=== PATIENT | male | born 1970 | race Caucasian/White ===

== ENCOUNTER 2022-12-22 21:53 | Emergency (ER) | payer SELFPAY ==
[~2022-12-22] VITALS: Ht 160 cm; Wt 59.0 kg
[2022-12-22] MEDS ORDERED: HALOPERIDOL LACTATE 5 MG/ML VIAL ONE (22:01)
[2022-12-22] MEDS ORDERED: DIPHENHYDRAMINE INJ 50 MG/ML VIAL ONE (22:04)
[2022-12-22] MEDS ORDERED: LORazepam 2 MG/ML VIAL ONE (22:05)
[2022-12-22 22:06] VITALS: BP_SYST 148
[2022-12-22] MEDS ORDERED: LORazepam 2 MG/ML VIAL IVP ONE (22:15)
[2022-12-22] MEDS ORDERED: HALOPERIDOL LACTATE 5 MG/ML VIAL IVP ONE (22:15)
[2022-12-22] MEDS ORDERED: NACL 0.9% 1,000 ML IV ONE (22:15)
[2022-12-22] MEDS ORDERED: DIPHENHYDRAMINE INJ 50 MG/ML VIAL IVP ONE (22:15)
[2022-12-22 22:35] LABS: BASOPHILS # (AUTO) 0.1 K/uL (0.0-0.2); BASOPHILS % (AUTO) 1.1 % (0.0-2.0); EOSINOPHILS % (AUTO) 0.3 % (0.0-4.0); HEMATOCRIT 38.8 % (36-54); HEMOGLOBIN 12.9 g/dL (14.0-18.0); LYMPHOCYTES # (AUTO) 1.1 K/uL (1.0-5.5); LYMPHOCYTES % (AUTO) 15.8 % (20.5-51.5); MEAN CORPUSCULAR HEMOGLOBIN 29 pg (27-31); MEAN CORPUSCULAR HGB CONC 33 % (32-36); MEAN CORPUSCULAR VOLUME 87 fL (79.0-98.0); MONOCYTES # (AUTO) 0.3 K/uL (0.0-1.0); MONOCYTES % (AUTO) 4.8 % (1.7-9.3); NEUTROPHILS # (AUTO) 5.6 K/uL (1.8-7.7); PLATELET COUNT (AUTO) 181 K/uL (130-430); RED BLOOD CELL COUNT(AUTO) 4.45 MIL/uL (4.2-6.2); RED CELL DISTRIBUTION WIDTH 14.4 % (9.0-15.0); WHITE BLOOD COUNT (AUTO) 7.1 K/uL (4.8-10.8)
[2022-12-22 22:53] LABS: ALBUMIN 3.4 g/dL (3.4-4.8); CALCIUM 8.4 mg/dL (8.4-11.0); CREATININE 1.35 mg/dL (0.55-1.30); TOTAL BILIRUBIN 0.4 mg/dL (0.0-1.0)
[2022-12-23 02:09] LABS: BARBITURATE, URINE NEGATIVE (NEG <=200); METHAMPHETAMINES SCREEN,URINE POSITIVE (NEG <=500); URINE AMPHETAMINE POSITIVE (NEG <=500); URINE METHADONE NEGATIVE (NEG <=200)
[2022-12-23 02:10] LABS: BENZODIAZEPINE, URINE NEGATIVE (NEG <=150); CANNABINOID, URINE NEGATIVE (NEG <=50); COCAINE, URINE NEGATIVE (NEG <=150); OPIATE, URINE POSITIVE (NEG <=100); PHENCYCLIDINE SCREEN,URINE NEGATIVE (NEG <=25); URINE OXYCODONE SCREEN NEGATIVE (NEG <=100); URINE PROPOXYPHENE SCREEN NEGATIVE (NEG <=300)
[2022-12-23 02:12] LABS: UR TRICYCLIC ANTIDEPRESSANTS NEGATIVE (NEG <=300)
[2022-12-23 09:20] VITALS: BP_SYST 127
== END 2022-12-23 09:19 | disposition home or self-care (01) ==
LOC: SED 21:53
DX: F11.129 Opioid abuse with intoxication, unspecified (principal); F19.10 Other psychoactive substance abuse, uncomplicated; R41.82 Altered mental status, unspecified; Z79.899 Other long term (current) drug therapy
CPT/HCPCS: 99285; 96374; 96375; 96361; 80307; 80053; 85025; 36415; 93005; J1200; J1630; J2060; J7030

== ENCOUNTER 2023-02-16 07:41 | Emergency (ER) | payer SELFPAY ==
[~2023-02-16] VITALS: Ht 180.3 cm; Wt 81.6 kg
[~2023-02-16 07:41] MED LIST: ACAM333T9 PO; CYCL10TA24 PO; DICL20GE TP; DICL75TA5 PO; DULO60CA42 PO; FOLI-43 PO; GABA-331 PO; LIB25 PO; ONDA-8 TL; TRAM50TA PO; Trazadone PO; antabuse PO
[2023-02-16 07:48] VITALS: BP_SYST 117; PULSE 77; RESP 20; TEMP 98; O2SAT 99
[2023-02-16] MEDS ORDERED: BACITRACIN 1 GM OINT TP ONE (07:58)
[2023-02-16] MEDS ORDERED: ACETAMINOPHEN 500 MG TABLET PO ONE (08:00)
[2023-02-16 09:21] VITALS: BP_SYST 142; PULSE 78; RESP 18; TEMP 98.3; O2SAT 98
== END 2023-02-16 09:20 | disposition home or self-care (01) ==
LOC: SED 07:41
DX: S01.112A Laceration without foreign body of left eyelid and periocular area, initial encounter (principal); S09.90XA Unspecified injury of head, initial encounter; F19.10 Other psychoactive substance abuse, uncomplicated; Z79.899 Other long term (current) drug therapy; Y04.0XXA Assault by unarmed brawl or fight, initial encounter; Y93.89 Activity, other specified; Y92.89 Other specified places as the place of occurrence of the external cause; Y99.8 Other external cause status
CPT/HCPCS: 70450-TC; 70486-TC; 73564; 76376; 99284